=== PATIENT | male | born 1955 | race Caucasian/White ===

== ENCOUNTER 2024-05-20 18:55 | Inpatient (IN) | payer BC ==
[~2024-05-20] VITALS: Ht 180.3 cm; Wt 95.0 kg
[~2024-05-20 18:55] MED LIST: ASPI81CH PO; CHLO25B PO; FAMC250 PO; Inderal40 MG PO; LISI20 PO; TRULICITY0.75 MG/01 SC; VENL75ER PO
[2024-05-20 19:33] LABS: BASOPHILS ABSOLUTE AUTO 0.04 K/mm3 (0.00-0.23); BASOPHILS PERCENT AUTO 0 % (0-2); EOSINOPHILS ABSOLUTE AUTO 0.06 K/mm3 (0.00-0.68); EOSINOPHILS PERCENT AUTO 1 % (0-6); Hematocrit 42.7 % (37.0-53.0); IMMATURE GRAN ABSOLUTE AUTO 0.05 K/mm3 (0.00-0.10); IMMATURE GRAN PERCENT AUTO 1 % (0-1); LYMPHOCYTES ABSOLUTE AUTO 0.48 K/mm3 (0.84-5.20); LYMPHOCYTES PERCENT AUTO 5 % (21-46); MONOCYTES ABSOLUTE AUTO 0.82 K/mm3 (0.16-1.47); MONOCYTES PERCENT AUTO 9 % (4-13); Mean Corpuscular HGB Conc 35.1 g/dL (31.5-36.5); Mean Corpuscular Volume 91 fL (80-100); Mean Platelet Volume 10.4 fL (9.1-12.4); NEUTROPHILS ABSOLUTE AUTO 7.63 K/mm3 (1.96-9.15); NEUTROPHILS PERCENT AUTO 84 % (41-73); Platelet Count 286 K/mm3 (150-400); RDW Coefficient Variation 13.2 % (11.7-14.2); RDW Standard Deviation 43.8 fL (35.1-46.3); Red Blood Cell Count 4.69 M/mm3 (4.30-5.90); White Blood Cell Count 9.08 K/mm3 (4.00-11.30)
[2024-05-20 19:47] LABS: Albumin, Blood 3.9 g/dL (3.4-5.0); Albumin/Globulin Ratio 1.1 (0.8-1.8); Bilirubin, Total 0.6 mg/dL (0.1-1.0); Bun/Creatinine Ratio 14.7 (12.0-20.0); Calcium, Blood 8.6 mg/dL (8.5-10.1); Creatinine, Blood 0.95 mg/dL (0.60-1.20); Globulin, Blood 3.5 g/dL (2.2-4.0); Potassium, Blood 3.4 mmol/L (3.5-5.5); Total Protein, Blood 7.4 g/dL (6.4-8.2)
[2024-05-20 20:09] LABS: Influenza B, PCR NEGATIVE (NEGATIVE); Resp Syncytial Virus, PCR NEGATIVE (NEGATIVE); SARS-Cov-2 (COVID-19) PCR, MMC NEGATIVE (NEGATIVE)
[2024-05-20] MEDS ORDERED: Ketorolac Tromethamine 15mg Vial IV ONE (20:10)
[2024-05-20] MEDS ORDERED: CefTRIAXone Sodium 1,000 MG in NS 100 ML IV ONE (20:10)
[2024-05-20] MEDS ORDERED: Azithromycin 500 MG in NS 250 ML IV ONE (20:10)
[2024-05-20] MEDS ORDERED: NS 1,000 ML IV SCH ×2 (21:50→23:45)
[2024-05-20] MEDS ORDERED: METFORMIN HCL500 M3 PO (23:23)
[2024-05-20] MEDS ORDERED: FLU VACC TS2024-25(6MOS UP)/PF 45 MCG/0.5 ML SYRINGE IM ONE (23:55)
[2024-05-20] MEDS ORDERED: Ondansetron HCl 2 MG / ML 2ML Vial IV PRN (23:55)
[2024-05-20] MEDS ORDERED: ATOR40TA PO (23:59)
[2024-05-20] MEDS ORDERED: GLIP10 PO (23:59)
[2024-05-21] VITALS (7 sets, daily range): BP systolic 16–165; BP diastolic 70–88
[2024-05-21] MEDS ORDERED: Oseltamivir Phosphate 75 MG Cap PO SCH
[2024-05-21 00:24] LABS: Magnesium, Blood 1.1 mg/dL (1.6-2.4)
[2024-05-21] MEDS ORDERED: Magnesium Sulf 2 GM/Water 50ML 50 ML IV ONE (00:30)
[2024-05-21] MEDS ORDERED: Enoxaparin 40 MG/0.4 ML SYR SC SCH (00:44)
[2024-05-21] MEDS ORDERED: Potassium Chloride 40 MEQ in NS 250 ML IV ONE (00:50)
[2024-05-21 03:40] LABS: Source, Urine Clean Catch
[2024-05-21 04:01] LABS: International Normalized Ratio 1.23
[2024-05-21 04:06] LABS: Bilirubin, Urine Neg (Neg); Blood, Urine 3+ (Neg); Glucose Qualitative, Urine 1+ (Neg); Ketones, Urine 2+ (Neg); Leukocyte Esterase, Urine Neg (Neg); Nitrite, Urine Neg (Neg); Protein, Urine 3+ (Neg); Specific Gravity, Urine 1.025 (1.003-1.022); Urobilinogen, Urine NORM (Normal)
[2024-05-21 04:16] LABS: Color, Urine Yellow (P-Yellow)
[2024-05-21 04:17] LABS: Amorphous Mod (0-Heavy); Appearance, Urine Hazy (Clear); Bacteria Few /hpf; Mucus Mod (0-Heavy); Red Blood Cells, Urine 0-2 /hpf (0-2); Squamous Epithelial Cells Rare /hpf (Few); White Blood Cells, Urine 0-2 /hpf (0-5)
[2024-05-21] MEDS ORDERED: Acetaminophen 325 MG TABLET PO PRN (04:50)
[2024-05-21] MEDS ORDERED: Ketorolac Tromethamine 15mg Vial IV PRN (05:20)
--- NOTE | 2024-05-21 05:20 | NUR ---
SHIFT SUMMARY PT REMAINS A&OX4. TMAX 102.9, NOTIFIED, PO TYLENOL GIVEN. VSS ON RA >90%. PT ON TELE NSR 90s. PT HAS UNSTEADY GAIT, BEDREST AT THIS TIME. ASSISTANCE WITH URINAL. PT RECIEVED MAGNESIUM AND POTASSIUM CHLORIDE REPLACEMENTS. NS RUNNING CONTINUOUSLY @ 75cc/hr X1 BAG. NO FURTHER QUESTIONS OR CONCERNS AT THIS TIME. CALL KELLEY WITHIN REACH. WILL CONTINUE WITH PLAN OF CARE.
[2024-05-21 06:11] LABS: BASOPHILS ABSOLUTE AUTO 0.03 K/mm3 (0.00-0.23); BASOPHILS PERCENT AUTO 1 % (0-2); EOSINOPHILS ABSOLUTE AUTO 0.01 K/mm3 (0.00-0.68); EOSINOPHILS PERCENT AUTO 0 % (0-6); Hematocrit 37.8 % (37.0-53.0); Hemoglobin 13.1 g/dL (13.5-17.5); IMMATURE GRAN ABSOLUTE AUTO 0.01 K/mm3 (0.00-0.10); IMMATURE GRAN PERCENT AUTO 0 % (0-1); LYMPHOCYTES ABSOLUTE AUTO 0.66 K/mm3 (0.84-5.20); LYMPHOCYTES PERCENT AUTO 10 % (21-46); MONOCYTES PERCENT AUTO 14 % (4-13); Mean Corpuscular HGB 31.7 pg (26.0-34.0); Mean Corpuscular HGB Conc 34.7 g/dL (31.5-36.5); Mean Corpuscular Volume 92 fL (80-100); Mean Platelet Volume 10.4 fL (9.1-12.4); NEUTROPHILS ABSOLUTE AUTO 4.81 K/mm3 (1.96-9.15); NEUTROPHILS PERCENT AUTO 75 % (41-73); Platelet Count 229 K/mm3 (150-400); RDW Coefficient Variation 13.5 % (11.7-14.2); RDW Standard Deviation 44.9 fL (35.1-46.3); Red Blood Cell Count 4.13 M/mm3 (4.30-5.90); White Blood Cell Count 6.42 K/mm3 (4.00-11.30)
[2024-05-21 06:32] LABS: Albumin, Blood 3.2 g/dL (3.4-5.0); Bilirubin, Total 0.5 mg/dL (0.1-1.0); Bun/Creatinine Ratio 17.6 (12.0-20.0); Calcium, Blood 7.8 mg/dL (8.5-10.1); Creatinine, Blood 1.02 mg/dL (0.60-1.20); Globulin, Blood 3.2 g/dL (2.2-4.0); Potassium, Blood 3.4 mmol/L (3.5-5.5); Total Protein, Blood 6.4 g/dL (6.4-8.2)
[2024-05-21] MEDS ORDERED: VENL150ER PO (07:09)
[2024-05-21] MEDS ORDERED: Insulin Human Lispro 100 Units/ML 3ML Syringe SC SCH (07:30)
[2024-05-21] MEDS ORDERED: Aspirin 81 MG Chew PO SCH (09:00)
[2024-05-21] MEDS ORDERED: Lisinopril 20 MG Tab PO SCH (09:00)
[2024-05-21] MEDS ORDERED: Venlafaxine HCl 75 MG CapCR PO SCH ×2 (09:00)
[2024-05-21] MEDS ORDERED: HydroCHLOROthiazide 25 mg Tab PO SCH (09:00)
[2024-05-21 10:23] LABS: Magnesium, Blood 1.9 mg/dL (1.6-2.4); Potassium, Blood 3.7 mmol/L (3.5-5.5)
[2024-05-21] MEDS ORDERED: ACET325 PO (16:57)
[2024-05-21] MEDS ORDERED: OSEL75CA PO (16:58)
--- NOTE | 2024-05-21 17:15 | NUR ---
DISCHARGE NOTE: PT DISCHARGED TO HOME AT THIS TIME IN NO ACUTE STRESS. PT WAS GIVEN WRITTEN AND VERBAL DC INSTRUCTIONS AND WAS INSTRUCTED TO COME BACK TO THE ED IF SYMPTOMS WORSEN. ALL OF PTS QUESTIONS AND CONCERNS WERE ADDRESSED AND DENIES ANY FURTHER QUESTIONS OR CONCERNS. PTS IV WAS REMOVED WITH CATHETER INTACT. BELONGINGS WERE COLLECTED AND TAKE HOME WITH PT. PT WAS WHEELED OUT BY [facility] ACCOMPANIED BY HIS .
[2024-05-30 08:52] LABS: Influenza A, PCR POSITIVE (NEGATIVE)
== END 2024-05-21 17:14 | disposition home or self-care (01) | DRG 871 ==
LOC: ER 18:55 → PCU 23:26
PROVIDERS: Physician Assistant; ADMIT Internal Medicine
DX: A41.9 Sepsis, unspecified organism (principal); J10.00 Influenza due to other identified influenza virus with unspecified type of pneumonia; J96.01 Acute respiratory failure with hypoxia; E87.6 Hypokalemia; E83.42 Hypomagnesemia; E78.5 Hyperlipidemia, unspecified; E11.9 Type 2 diabetes mellitus without complications; I10 Essential (primary) hypertension; Z79.82 Long term (current) use of aspirin; Z79.84 Long term (current) use of oral hypoglycemic drugs; Z79.899 Other long term (current) drug therapy
CPT/HCPCS: 0241U; 36415; 71046; 80053; 81001; 82947; 83605; 83735; 83880; 84132; 85025; 85610; 87040; 93005; 93010; 93306; 96365; 96367; 96375; 99284-25; A9270; J0456; J0696; J1650; J1885; J3475; J3480; J7030; J7050